=== PATIENT | female | born 1950 | race Caucasian/White ===

== ENCOUNTER 2017-01-10 09:09 | Inpatient (IN) ==
--- OUTSIDE RECORDS SUMMARY | 2017-01-10 09:19 | External Medical Summary | Continuity of Care Document ---
:1950 Author Organization [facility] Allergies Medications Problems Procedures Results Encounters ACCT No. Visit Discharge Status Pt. Type Provider Facility Loc./Unit Complaint Date/Time [id number] 08/06/2013 08/06/2013 CLS Outpatient 09:12:00 23:59:59 [id number] 07/09/2013 07/09/2013 CLS Outpatient 10:43:00 23:59:59
[2017-01-10 10:05] VITALS: BMI 32.8
--- NOTE | 2017-01-10 10:27 | History & Physical Report ---
<Tahmina Cannon Jose - Last Filed: 01/10/17 11:52> History of Present Illness Date: 01/10/17 Chief complaint: right eye redness, swelling HPI: Yuli Kruse is a 66 y/o woman who woke up in the morning of 01/09/17 with right eye swelling, redness and pain. She denies fevers/chills, nausea, body aches, weakness or dizziness, diplopia, cough/cold, SOA, chest pain, abdominal pain or GI complaints, dysuria, or leg swelling. She denies any trauma or possible insect bites to this area. She was seen at [facility] that day , and was urgently referred to Dr. Sneed. He began treatment for right periorbital cellulitis with Rocephin IM and Bactrim DS 2 tablets BID. She returned for office f/u with Dr. Sneed on 01/10/17 after taking her morning dose of Bactrim but the redness and swelling was much worse. Dr. Sneed then contacted Dr. Garber and the patient was admitted to the hospital for further evaluation of her worsening right periorbital cellulitis. Review of Systems ROS unobtainable: due to mental status (Hx of MR; answers simple questions; ROS obtained primarily from patient's sister, Cari) - Constitutional Constitutional: Absent: chills, fatigue, fever(s), weight loss - EENMT Eyes: Present: as per HPI Nose: Absent: obstruction Mouth/Throat: Absent: sore throat, changes in swallowing - Cardiovascular Cardiovascular: Absent: chest pain, edema Vascular: Absent: pedal edema - Respiratory Respiratory: Absent: cough, dyspnea - Gastrointestinal Gastrointestinal: Absent: abdominal pain, diarrhea, nausea, vomiting - Genitourinary Menstruation: post hysterectomy - Musculoskeletal Musculoskeletal: Absent: muscle weakness - Integumentary/Breasts Integumentary: Present: as per HPI - Neurological Neurological: Absent: dizziness, frequent falls, headache(s), weakness - Psychiatric Psychiatric: Present: anxiety - Allergic/Immunologic Allergic/Immunologic: Absent: throat swelling PFSH HTN HLD Hypothyroidism DM2. Hgb A1c 6.9% (10/26/16). MR Asthma GERD Obesity BMI >30 Surgical History: Right eye surgery 2016. Hernia repair. Hysterectomy. possibly goiter - well healed faint incision to right side of neck. Colonoscopy 2010. Choecystectomy Family History: Diabetes, heart disease, bone cancer, seizures - Social History Smoking status: Never smoker Substance use type: does not use Alcohol intake frequency: does not drink Current residence: Apartment/Private Home Social history: PCP - Dr. Meza Her sister, Cari, is Danielle's guardian. Medications Home Medications Medication Instructions Recorded Confirmed Type Acetaminophen [Tylenol Extra 1,000 mg PO Q8H PRN #0 02/25/10 History Strength] Albuterol Sulfate (Albuterol 1 puff IH PRN #0 02/25/10 History Sulfate Hfa) Ascorbic Acid (Vitamin C) 1,000 mg PO DAILY #0 02/25/10 History Atorvastatin Calcium [Lipitor] 20 mg PO PM #0 02/25/10 History Calcium Carbonate/Vitamin D3 1 tab PO DAILY #0 02/25/10 History (Calcium + D 600 Mg Tablet) Docusate Sodium [Stool Softener] 100 mg PO BID #0 02/25/10 History Levothyroxine Sodium (Levothroid) 150 mcg PO DAILY #0 02/25/10 History Lisinopril/Hydrochlorothiazide 1 tab PO DAILY #0 02/25/10 History (Lisinopril-Hctz 10-12.5 Tab) Metformin HCl [Glucophage] 500 mg PO BID #0 02/25/10 History Potassium Chloride (Micro-K) 10 meq PO DAILY #0 02/25/10 History Vitamin E (Natural Vitamin E) 1,000 unit PO DAILY #0 02/25/10 History Diphenhydramine Hcl (Benadryl) 50 mg PO PRN #0 12/25/10 History Allergies Allergy/AdvReac Type Severity Reaction Status Date / Time aspirin Allergy Severe HIVES Verified 01/10/17 10:21 Penicillins Allergy Severe HIVES Verified 01/10/17 10:21 BEE STING Allergy Unknown Uncoded 01/10/17 10:21 Exam Vital Signs: Temperature 96.9 F 01/10/17 09:34 Pulse Rate 98 01/10/17 09:34 Respiratory Rate 18 01/10/17 09:34 Blood Pressure 163/88 H 01/10/17 09:34 Pulse Oximetry 95 01/10/17 09:34 Oxygen Delivery Method Room Air Height/Weight/BMI: Height 1.54 m Weight 77.5 kg Body Mass Index 32.8 - Constitutional Present: no acute distress, well nourished, well developed, obese - Routine HEENT Exam Eye: Present: scleral injection (purulent drainage from right eye), periorbital swelling, periorbital tenderness. Absent: EOMI (pt was unable to keep her right eye open well to fully assess EOMs. ) ENT: Present: mucous membranes moist - Detailed Head Exam Head image: 1 - swelling and erythema 2 - erythema extends to left maxilla 3 - erythema - Routine Neck Exam Present: lymphadenopathy (with lymphadenitis) - Routine Respiratory Exam Present: CTA bilaterally - Routine Cardiovascular Exam Present: RRR, S1, S2, murmur - Routine Abdominal Exam Present: soft, normoactive bowel sounds, non distended, non tender - Routine Extremities Exam Present: no edema, pulses intact, normal capillary refill - Routine Skin Exam Present: intact, dry, warm - Routine Neurological Exam Present: alert, oriented X3, normal speech - Routine Psychiatric Exam Present: normal affect, normal thought process, cooperative Results - Labs CBC & Chem 7: 01/10/17 10:16 01/10/17 10:16 Assessment and Plan (1) Preseptal cellulitis of right eye Current visit: Yes Status: Acute DVT Prophylaxis: SCD's Resuscitation Status: Full Code Assessment and Plan: ASSESSMENT Right periorbital cellulitis with possible severe sepsis (lactate 2.6 without other criteria) HTN HLD Hypothyroidism DM2. Hgb A1c 6.9% (10/26/16). MR Asthma GERD Obesity BMI >30 PLAN Admit, inpatient status for worsening right periorbital cellulitis with failed outpatient treatment Obtain CT orbit with contrast IVF 1L bolus d/t lactate 2.6 - repeat lactate in a few hrs to assess clearance. If it would happen to rise to 4 or greater or if she becomes hypotensive, she will need an additional 1325 mL bolus. Abx: Vanco + Rocephin + gentamycin eye ointment. Consult Dr. Sneed. Pain control: Tylenol; [place] PRN. Resume home meds once reconciled by nursing staff. Discussed with family; outside records accessed and reviewed for collateral information. Sepsis Assessment - Evaluation Sepsis screening result: No Definite Risk Hospital Course Summary Disclaimer: The visit summary below is not to be considered part of the above Progress Note. Hospital Course: Date of admission: 01/10/17 ASSESSMENT Right periorbital cellulitis with possible severe sepsis (lactate 2.6 without other criteria) HTN HLD Hypothyroidism DM2. Hgb A1c 6.9% (10/26/16). MR Asthma GERD Obesity BMI >30 PLAN Admit, inpatient status for worsening right periorbital cellulitis with failed outpatient treatment Obtain CT orbit with contrast IVF 1L bolus d/t lactate 2.6 - repeat lactate in a few hrs to assess clearance. If it would happen to rise to 4 or greater or if she becomes hypotensive, she will need an additional 1325 mL bolus. Abx: Vanco + Rocephin + gentamycin eye ointment. Consult Dr. Sneed. Pain control: Tylenol; [place] PRN. Resume home meds once reconciled by nursing staff. <Alexander Garber - Last Filed: 01/10/17 14:42> History of Present Illness Date: 01/10/17 [facility] Patient Stated Medical History Cataracts Yes: right removed Hypertension Yes Other Cardiology Yes: murmur Pneumonia Yes Diabetes Mellitus Type 2 Yes: borderline Exam Vital Signs: Temperature 96.9 F 01/10/17 09:34 Pulse Rate 98 01/10/17 09:34 Respiratory Rate 18 01/10/17 09:34 Blood Pressure 163/88 H 01/10/17 09:34 Pulse Oximetry 95 01/10/17 09:34 Height/Weight/BMI: Height 1.54 m Weight 77.5 kg Body Mass Index 32.8 Results - Labs CBC & Chem 7: 01/10/17 10:16 01/10/17 10:16 Microbiology Results: Microbiology 01/10/17 10:15 Peripheral/Iv Start Blood Culture - Preliminary Culture Initiated - Results Pending 01/10/17 10:16 Peripheral/Iv Start Blood Culture - Preliminary Culture Initiated - Results Pending Assessment and Plan (1) Preseptal cellulitis of right eye Current visit: Yes Status: Acute Assessment and Plan: ASSESSMENT Right periorbital cellulitis with possible severe sepsis (lactate 2.6 without other criteria) Extensive left-sided paranasal sinus disease - possible chronic sinusitis HTN HLD Hypothyroidism DM2. Hgb A1c 6.9% (10/26/16). MR Asthma GERD Obesity BMI >32.8 Have independently interviewed and examined pt. Chart reviewed. 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 Care plan developed with my supervision; agree with above. Developed redness, swelling, and discomfort around her right eye yesterday morning. See in clinic and referred to Dr Sneed. Give Rocephin 1 gram IM yesterday and started on Bactrim DS 2 tables BID. Reassessed by Dr Sneed this morning and erythema and edema worsening despite treatments. Patient notes discomfort to this area. Not able to open eye. No f/c. Not having nausea or vomiting. Breathing stable. With worsening cellulitis despite appropriate outpatient treatment inpatient admission warranted. Anticipate greater than 2 midnights of care needed. HEENT: swelling/redness to right eye. Not able to open eye Lungs: clear bilaterally, no distress on RA CV: regular with EPI AB: soft nt/nd MSE: awake alert Plan: Inpatient admission for treatment of periorbital cellulitis. Initiate Vancomycin and Rocephin for skin coverage. Dr Sneed recommend gentamicin eye drops as well. IVF for support. Recheck lactate (possible increase secondary to patient's metformin use and acute illness). Hold Metformin due to acute illness and elevated lactate. Monitor sugars. Pain control. SCD for DVT prevention. Care to return to Dr Meza at time of [place] [facility] - Time spent with patient greater than 35 minutes Hospital Course Summary Disclaimer: The visit summary below is not to be considered part of the above Progress Note.
[2017-01-10] MEDS ORDERED: VANCOMYCIN - PHARMACY CONSULT MC ONE (10:44)
[2017-01-10] MEDS ORDERED: NS 1,000 ML IV ONE (10:46)
[2017-01-10] MEDS ORDERED: HYDROCODONE/APAP 5mg/325mg TABLET PO PRN (10:53)
[2017-01-10] MEDS ORDERED: ONDANSETRON 4 MG/2 ML INJECTION IV PRN (10:53)
[2017-01-10] MEDS ORDERED: ACETAMINOPHEN 500 MG TABLET PO PRN (10:54)
[2017-01-10] MEDS ORDERED: IOHEXOL 300mg/ml 50ml INJECTION ONE (10:58)
[2017-01-10] MEDS ORDERED: SALINE FLUSH 10ml SYRINGE ONE (10:58)
[2017-01-10] MEDS ORDERED: NS 100 ML ONE (10:58)
[2017-01-10] MEDS: GENTAMICIN 0.3% RIGHT EYE SCH ×3 (11:03→20:18)
[2017-01-10] MEDS: EYE RIGHT EYE SCH ×3 (11:03→20:18)
--- NOTE | 2017-01-10 11:36 | CT Scan Report ---
Indication: right periorbital cellulitis PROCEDURE: CT orbit BI w con: Encounter: Initial Comparison: None Technique: Axial postcontrast CT imaging through the orbits was performed with coronal and sagittal two-dimensional reformats. Automated Exposure Control and Iterative Reconstruction dose reducing techniques were utilized. Contrast: Omnipaque 300 49mL Findings: Complete opacification of the left maxillary sinus with extension into the left anterior ethmoid air cells and left frontal sinus which is hypoplastic. Moderate mucosal thickening in the right frontal sinus and frontoethmoidal recess region. Mucosal thickening in the right middle ethmoid air cells as well. Trace mucosal thickening in the right maxillary sinus. The sphenoid sinuses are clear. Evidence of prior unusual appearing scleral banding procedure on the right side. Recommend correlation with the patient's ophthalmologic history. No acute orbital fracture appreciated. High attenuation secretions and enhancement in the left maxillary sinus could represent a fungal sinusitis. No CT evidence to suggest a subperiosteal abscess however. The globes are intact. Prior cataract surgery on the right side. Left lens appears normally located. No post septal inflammatory change or hematoma. The extraocular muscles and optic nerves appear grossly normal. There is severe soft tissue swelling and inflammation in the soft tissues lateral and inferior to the right orbit. No focal or drainable fluid collection appreciated. Impression: 1. Evidence of an extensive preseptal right-sided periorbital cellulitis. No findings to suggest a true orbital cellulitis. 2. Extensive left-sided paranasal sinus disease could represent chronic sinusitis, possibly fungal sinusitis. .
--- NOTE | 2017-01-10 11:53 | Pharmacy Consult-Antibiotics ---
Pharmacy Consult-Vancomycin - Laboratory Information WBC 7.0 T/MM3 (4.5-11.0) 01/10/17 10:16 BUN 16.0 MG/DL (7-17) 01/10/17 10:16 Creatinine 0.6 MG/DL (0.7-1.2) L 01/10/17 10:16 Procalcitonin < 0.05 NG/ML 01/10/17 10:16 SK is 66yo F admitted with Rt joshua-orbital cellulitis. Starting on Vanco + Ceftriaxone + Gentamicin Ophthalmic Ointment. Renal fx appears stable. Will give VANCOMYCIN 2gm IV at 1300, then [id number] thereafter starting at 2100 tonight. Will confirm trough levels tomorrow am. Target trough = 15-20mcg/ml. Thank you.
[2017-01-10] MEDS: CEFTRIAXONE 1 G in NS 100 ML IV SCH (12:20)
[2017-01-10] MEDS ORDERED: NS FLUSH BAG 500ml IV PRN (13:53)
[2017-01-10] MEDS: NS 1,000 ML IV SCH ×2 (16:01→21:37)
--- NOTE | 2017-01-11 09:23 | Pharmacy Consult-Antibiotics ---
Pharmacy Consult-Vancomycin - Laboratory Information WBC 7.9 T/MM3 (4.5-11.0) 01/11/17 04:14 BUN 12.0 MG/DL (7-17) 01/11/17 04:14 Creatinine 0.7 MG/DL (0.7-1.2) 01/11/17 04:14 Procalcitonin < 0.05 NG/ML 01/11/17 04:14 Vancomycin Trough 21.78 UG/ML (15-20) H* 01/11/17 08:16 HOLDING THIS AM DOSE. Will readjust regimen to VANCOMYCIN 1500mg IV q12hrs, starting at 1200 today. This gives calculated peak/trough of 48/18 respectively. Will confirm levels and adjust regimen to keep trough level within 15-20 mcg/ml range. Thank you
--- NOTE | 2017-01-11 10:54 | Progress Note ---
Subjective: F/U: Right periorbital cellulitis Doing better today. Right eye much less discomfortable and swollen. Can open eye. Reports vision in right eye normal. No f/c. Breathing well-not feeling SOA or congested. No chest pain. Eating well-not upset at stomach or nauseated. No ab pain. Has stool this morning. Urinating well. Legs did feel very hot and crampy this morning due to SCD-removed and Tylenol given. Objective Vital signs: Temperature 96.0 F L 01/11/17 07:27 Pulse Rate 99 01/11/17 07:27 Respiratory Rate 18 01/11/17 07:27 Blood Pressure 145/83 H 01/11/17 07:27 Pulse Oximetry 98 01/11/17 07:27 Height/Weight/BMI: Height 1.54 m Weight 79.3 kg Body Mass Index 32.8 - Constitutional Present: well nourished, well developed, obese, cooperative. Absent: agitated - Routine HEENT Exam Head: Present: normocephalic, atraumatic, facial swelling (Significant decrease in erythema and edema surrounging right eye) Eye: Present: EOMI, PERRL ENT: Present: mucous membranes moist - Routine Respiratory Exam Present: CTA bilaterally. Absent: respiratory distress, rhonchi, wheezes, crackles - Routine Cardiovascular Exam Present: RRR, murmur - Routine Abdominal Exam Present: soft, normoactive bowel sounds. Absent: non distended, non tender - Routine Extremities Exam Present: no edema, pulses intact. Absent: cyanosis, clubbing - Routine Musculoskeletal Exam Musculoskeletal: Present: no clubbing or cyanosis, normal strength - Routine Skin Exam Present: intact, erythema (Erythema arround right eye decreasing. ), warm, normal turgor. Absent: mottling - Routine Neurological Exam Present: alert, oriented X3, CN II-XII intact, vision grossly intact, hearing grossly intact. Absent: motor deficit - Routine Psychiatric Exam Present: normal affect, normal thought process, cooperative. Absent: anxious, agitated Results - Labs CBC & Chem 7: 01/11/17 04:14 01/11/17 04:14 Microbiology Results: Microbiology 01/10/17 10:15 Peripheral/Iv Start Blood Culture - Preliminary No Growth After 1 Day 01/10/17 10:16 Peripheral/Iv Start Blood Culture - Preliminary No Growth After 1 Day Assessment and Plan (1) Preseptal cellulitis of right eye Current visit: Yes Status: Acute DVT Prophylaxis: SCD's Assessment and Plan: ASSESSMENT Right periorbital cellulitis with possible severe sepsis (lactate 2.6 without other criteria) Severe sepsis excluded Suspect elevated lactic acid secondary to metformin. Extensive left-sided paranasal sinus disease - possible chronic sinusitis HTN HLD Hypothyroidism DM2. Hgb A1c 6.9% (10/26/16). MR Asthma GERD Obesity BMI - 32.8 Plan Continue IV Rocephin and Vancomycin along with topical gentamicin for periorbital cellulitis. Clinically improving - Erythema and edema with significant decrease. WBC normal. Blood pressure not decrease. Hold metformin due to elevated lactate at presentation - sugars stable overall. Blood pressures showing elevation to 140s-150s - likely could restart home antihypertensives tomorrow. Encourage ambulation and activities. Recheck CBC, BMP, and CRP in am. Patient improving clinically and biochemically but still prudent to continue inpatient treatment and antibiotics. Case discussed with nursing. Time spent with patient care 25 minutes. - Time spent with patient 25 - 35 minutes Sepsis Assessment - Evaluation Sepsis screening result: No Definite Risk Hospital Course Summary Disclaimer: The visit summary below is not to be considered part of the above Progress Note. Hospital Course: Date of admission: 01/10/17 ASSESSMENT Right periorbital cellulitis with possible severe sepsis (lactate 2.6 without other criteria) HTN HLD Hypothyroidism DM2 - Hgb A1c 6.9% (10/26/16) MR Asthma GERD Obesity BMI - 32.8 PLAN Admit, inpatient status for worsening right periorbital cellulitis with failed outpatient treatment. Obtain CT orbit with contrast. IVF 1L bolus d/t lactate 2.6 - repeat lactate in a few hours to assess clearance. If it would happen to rise to 4 or greater or if she becomes hypotensive, she will need an additional 1325 mL bolus. Hold metformin due to elevated lactate. Monitor sugars. Antibiotics: Vancomycin + Rocephin + gentamicin eye ointment. Consult Dr. Sneed. Pain control: Tylenol; [place] PRN. Resume home medications once reconciled by nursing staff. Care to return to Dr Meza at time of discharge. 01/11/17 Clinically improving. Can open right eye. Minimal right facial discomfort. Continue IV Rocephin and Vancomycin along with topical gentamicin for periorbital cellulitis. Clinically improving - Erythema and edema with significant decrease. WBC normal. Blood pressure not decrease. Hold metformin due to elevated lactate at presentation - sugars stable overall. Blood pressures showing elevation to 140s-150s - likely could restart home antihypertensives tomorrow. Encourage ambulation and activities. Recheck CBC, BMP, and CRP in am secondary to acute infection and mediation use. Patient improving clinically and biochemically but still prudent to continue inpatient treatment and antibiotics.
[2017-01-11] MEDS: CEFTRIAXONE 1 G in NS 100 ML IV SCH (11:11)
[2017-01-11] MEDS: GENTAMICIN 0.3% RIGHT EYE SCH ×3 (11:12→20:51)
[2017-01-11] MEDS: EYE RIGHT EYE SCH ×3 (11:12→20:51)
[2017-01-11] MEDS ORDERED: INSULIN REGULAR, HUMAN 100 UNIT/ML INJECTION SQ ONE (11:51)
[2017-01-11] MEDS: SALINE FLUSH 10ml SYRINGE IV PRN ×2 (11:57→23:50)
[2017-01-11] MEDS: INSULIN ASPART 100unit/ml INJECTION SQ PRN (21:58)
[2017-01-12] MEDS: INSULIN ASPART 100unit/ml INJECTION SQ PRN ×3 (06:12→16:57)
[2017-01-12] MEDS: GENTAMICIN 0.3% RIGHT EYE SCH ×2 (08:22→15:29)
[2017-01-12] MEDS: EYE RIGHT EYE SCH ×2 (08:22→15:29)
[2017-01-12] MEDS: CEFTRIAXONE 1 G in NS 100 ML IV SCH (09:55)
--- NOTE | 2017-01-12 10:39 | Progress Note ---
<DavisTahmina D - Last Filed: 01/12/17 10:30> Subjective: Yuli was sitting in her chair this morning - she showed me pictures that she colored for nurses and for Dr. Garber. She feels much better - her eye swelling has improved and it doesn't hurt as much. She denies any fever/chills. No chest pain or dyspnea. She denies sinus congestion or drainage. No abdominal pain or nausea - she's been eating well. She asks about when she can go home. Objective Vital signs: Temperature 97.4 F 01/12/17 07:26 Pulse Rate 92 01/12/17 07:26 Respiratory Rate 18 01/12/17 07:26 Blood Pressure 149/81 H 01/12/17 07:26 Pulse Oximetry 95 01/12/17 07:26 Height/Weight/BMI: Height 1.54 m Weight 79.5 kg Body Mass Index 32.8 - Constitutional Present: no acute distress, well nourished, well developed - Routine HEENT Exam Eye: Present: periorbital swelling (improving; erythema also fading), periorbital tenderness. Absent: conjunctival icterus ENT: Present: mucous membranes moist Comments: able to keep right eye open - Routine Respiratory Exam Present: CTA bilaterally - Routine Cardiovascular Exam Present: RRR, S1, S2, murmur - Routine Abdominal Exam Present: soft, normoactive bowel sounds, non distended, non tender - Routine Extremities Exam Present: no edema, pulses intact - Routine Musculoskeletal Exam Musculoskeletal: Present: moving extremities well - Routine Skin Exam Present: intact, dry, warm - Routine Neurological Exam Present: alert, oriented X3, CN II-XII intact - Routine Psychiatric Exam Present: normal affect, normal thought process, cooperative Results - Labs CBC & Chem 7: 01/12/17 04:04 01/12/17 04:04 Microbiology Results: Microbiology 01/10/17 10:15 Peripheral/Iv Start Blood Culture - Preliminary No Growth After 2 Days 01/10/17 10:16 Peripheral/Iv Start Blood Culture - Preliminary No Growth After 2 Days Assessment and Plan (1) Preseptal cellulitis of right eye Current visit: Yes Status: Acute Assessment and Plan: ASSESSMENT Right periorbital cellulitis with possible severe sepsis (lactate 2.6 without other criteria) Severe sepsis excluded Suspect elevated lactic acid secondary to metformin. Extensive left-sided paranasal sinus disease - possible chronic sinusitis HTN HLD Hypothyroidism DM2. Hgb A1c 6.9% (10/26/16). MR Asthma GERD Obesity BMI - 32.8 Plan Continue IV Rocephin and Vancomycin along with topical gentamicin for periorbital cellulitis - day #3 of treatment. WBC remains normal; no fever. Cellulitis much improved, but not resolved. Will discuss metformin use with Dr. Garber - lactate was elevated on admission (more than what we would have expected given the rest of her labs). Home meds still not reconciled - will check with RN. Sepsis Assessment - Evaluation Sepsis screening result: No Definite Risk Hospital Course Summary Disclaimer: The visit summary below is not to be considered part of the above Progress Note. Hospital Course: Date of admission: 01/10/17 ASSESSMENT Right periorbital cellulitis with possible severe sepsis (lactate 2.6 without other criteria) HTN HLD Hypothyroidism DM2 - Hgb A1c 6.9% (10/26/16) MR Asthma GERD Obesity BMI - 32.8 PLAN Admit, inpatient status for worsening right periorbital cellulitis with failed outpatient treatment. Obtain CT orbit with contrast. IVF 1L bolus d/t lactate 2.6 - repeat lactate in a few hours to assess clearance. If it would happen to rise to 4 or greater or if she becomes hypotensive, she will need an additional 1325 mL bolus. Hold metformin due to elevated lactate. Monitor sugars. Antibiotics: Vancomycin + Rocephin + gentamicin eye ointment. Consult Dr. Sneed. Pain control: Tylenol; [place] PRN. Resume home medications once reconciled by nursing staff. Care to return to Dr Meza at time of discharge. 01/11/17 Clinically improving. Can open right eye. Minimal right facial discomfort. Continue IV Rocephin and Vancomycin along with topical gentamicin for periorbital cellulitis. Clinically improving - Erythema and edema with significant decrease. WBC normal. Blood pressure not decrease. Hold metformin due to elevated lactate at presentation - sugars stable overall. Blood pressures showing elevation to 140s-150s - likely could restart home antihypertensives tomorrow. Encourage ambulation and activities. Recheck CBC, BMP, and CRP in am secondary to acute infection and mediation use. Patient improving clinically and biochemically but still prudent to continue inpatient treatment and antibiotics. <Alexander Garber - Last Filed: 01/12/17 17:22> Objective Vital signs: Temperature 97.7 F 01/12/17 15:22 Pulse Rate 88 01/12/17 15:22 Respiratory Rate 20 01/12/17 15:22 Blood Pressure 155/71 H 01/12/17 15:22 Pulse Oximetry 96 01/12/17 15:22 Height/Weight/BMI: Height 1.54 m Weight 79.5 kg Body Mass Index 32.8 Results - Labs CBC & Chem 7: 01/12/17 04:04 01/12/17 04:04 Microbiology Results: Microbiology 01/10/17 10:15 Peripheral/Iv Start Blood Culture - Preliminary No Growth After 2 Days 01/10/17 10:16 Peripheral/Iv Start Blood Culture - Preliminary No Growth After 2 Days Assessment and Plan (1) Preseptal cellulitis of right eye Current visit: Yes Status: Acute Assessment and Plan: ASSESSMENT Right periorbital cellulitis with possible severe sepsis (lactate 2.6 without other criteria) Severe sepsis excluded Suspect elevated lactic acid secondary to metformin. Extensive left-sided paranasal sinus disease - possible chronic sinusitis HTN HLD Hypothyroidism DM2. Hgb A1c 6.9% (10/26/16). MR Asthma GERD Obesity BMI - 32.8 Have independently interviewed and examined pt. Chart reviewed. Case discussed with Dr Sneed and my [employer]. Care plan developed with my supervision; agree with above. Doing well today. No pain or discomfort to right eye. No fevers or chills. Eating well. Breathing well. NO ab pain. Feeling much better in general. Lungs: clear CV: regular AB: soft nt/nd +BS MSE: awake alert appropriate MRSA swab positive Plan: Discussed case with Dr Sneed-pt clinically much improve. MRSA swab positive - will continue treatments with oral clindamycin on topical gentamicin. Watch for nausea with oral clindamycin. Feel she is stable for discharge to home. Will have her follow with Dr Sneed in 1 week for evaluation. See orders for details. Time spent with patient care and discharge greater than 30 minutes. Hospital Course Summary Disclaimer: The visit summary below is not to be considered part of the above Progress Note.
[2017-01-12] MEDS: SALINE FLUSH 10ml SYRINGE IV PRN (11:03)
[2017-01-12 15:24] VITALS: BP 155/71; PULSE 88; RESP 20; TEMP 97.7; O2SAT 96
--- NOTE | 2017-01-12 17:29 | Discharge Summary ---
Discharge Information Date of admission: 01/10/17 09:09 Anticipated date of discharge: 01/12/17 Attending Physician: Alexander Garber MD Primary care physician: Nilo Meza MD Consults: Physician Consult: Fred Sneed Reason For Exam: periorbital cellulitis - Discharge Diagnosis Discharge Diagnosis: Right periorbital cellulitis with possible severe sepsis (lactate 2.6 without other criteria) Suspect secondary to MSRA Severe sepsis excluded Suspect elevated lactic acid secondary to metformin. Associated conditions and complications Extensive left-sided paranasal sinus disease - possible chronic sinusitis HTN HLD Hypothyroidism DM2. Hgb A1c 6.9% (10/26/16). MR Asthma GERD Obesity BMI - 32.8 - Laboratory Labs: Admit Lab 01/10/17 01/10/17 10:16 10:16 WBC 7.0 RBC 4.30 Hgb 13.2 Hct 40.6 MCV 94.4 Plt Count 236 Neut % (Auto) 63.4 Sodium 142 Potassium 4.5 Chloride 104 Carbon Dioxide 26 Anion Gap 12 BUN 16.0 Creatinine 0.6 L GFR Calculation 101 Glucose 110 Calculated Osmolality 275 Magnesium 2.0 Total Bilirubin 0.50 AST 17 ALT 30 Plasma Lactate 2.6 H 01/12/17 04:04 01/12/17 04:04 - Microbiology Microbiology 01/10/17 10:15 Peripheral/Iv Start Blood Culture - Preliminary No Growth After 2 Days 01/10/17 10:16 Peripheral/Iv Start Blood Culture - Preliminary No Growth After 2 Days History of Present Illness HPI: Yuli Kruse is a 66 y/o woman who woke up in the morning of 01/09/17 with right eye swelling, redness and pain. She denies fevers/chills, nausea, body aches, weakness or dizziness, diplopia, cough/cold, SOA, chest pain, abdominal pain or GI complaints, dysuria, or leg swelling. She denies any trauma or possible insect bites to this area. She was seen at [facility] that day , and was urgently referred to Dr. Sneed. He began treatment for right periorbital cellulitis with Rocephin IM and Bactrim DS 2 tablets BID. She returned for office f/u with Dr. Sneed on 01/10/17 after taking her morning dose of Bactrim but the redness and swelling was much worse. Dr. Sneed then contacted Dr. Garber and the patient was admitted to the hospital for further evaluation of her worsening right periorbital cellulitis. For complete details of the H&P refer to that document. Objective Vital signs: Temperature 97.7 F 01/12/17 15:22 Pulse Rate 88 01/12/17 15:22 Respiratory Rate 20 01/12/17 15:22 Blood Pressure 155/71 H 01/12/17 15:22 Pulse Oximetry 96 01/12/17 15:22 Height/Weight/BMI: Height 1.54 m Weight 79.5 kg Body Mass Index 32.8 Hospital Course This is a general summary of the patient's hospital course. For more details refer to the complete medical record. Hospital course: Date of admission: 01/10/17 ASSESSMENT Right periorbital cellulitis with possible severe sepsis (lactate 2.6 without other criteria) HTN HLD Hypothyroidism DM2 - Hgb A1c 6.9% (10/26/16) MR Asthma GERD Obesity BMI - 32.8 PLAN Admit, inpatient status for worsening right periorbital cellulitis with failed outpatient treatment. Obtain CT orbit with contrast. IVF 1L bolus d/t lactate 2.6 - repeat lactate in a few hours to assess clearance. If it would happen to rise to 4 or greater or if she becomes hypotensive, she will need an additional 1325 mL bolus. Hold metformin due to elevated lactate. Monitor sugars. Antibiotics: Vancomycin + Rocephin + gentamicin eye ointment. Consult Dr. Sneed. Pain control: Tylenol; [place] PRN. Resume home medications once reconciled by nursing staff. Care to return to Dr Meza at time of discharge. 01/11/17 Clinically improving. Can open right eye. Minimal right facial discomfort. Continue IV Rocephin and Vancomycin along with topical gentamicin for periorbital cellulitis. Clinically improving - Erythema and edema with significant decrease. WBC normal. Blood pressure not decrease. Hold metformin due to elevated lactate at presentation - sugars stable overall. Blood pressures showing elevation to 140s-150s - likely could restart home antihypertensives tomorrow. Encourage ambulation and activities. Recheck CBC, BMP, and CRP in am secondary to acute infection and mediation use. Patient improving clinically and biochemically but still prudent to continue inpatient treatment and antibiotics. 01/12/17 Clinically doing well. Swelling and erythema resolving. No pain or discomfort. Not temp elevation. Vitals and blood sugars stable. Discussed case with Dr Sneed-pt clinically much improved. MRSA swab positive - will continue treatments with oral clindamycin on topical gentamicin. Watch for nausea with oral clindamycin. Feel she is stable for discharge to home. Will have her follow with Dr Sneed in 1 week for evaluation. See orders for details. DVT Prophylaxis: SCD's Discharge Plan - Med Rec/Dispo Referrals/Follow Up: Fred Sneed MD [Physician] - 1 Week (F/U of periorbital cellulitis ) Nilo Meza MD [Family Provider] - 1 Week (Hospital follow up - periorbital celluitis. Medical rechek for her DM and HTN. ) [facility] Instructions: Cellulitis (DC) Prescriptions: New Clindamycin [Cleocin] 300 mg PO TID #30 cap Gentamicin Eye Oint [Garamycin O/O] 1 applic RIGHT EYE TID #0 tube Continue Glimepiride 1 mg PO DAILY Atorvastatin [Lipitor] 10 mg PO DAILY Naproxen [Naprosyn] 375 mg PO BID PRN PRN Reason: Pain Lisinopril/Hctz 10/12.5 1 tab PO DAILY Levothyroxine Tab [Synthroid] 125 mcg PO DAILY Ascorbic Acid [Vitamin C] 1 tab PO DAILY Potassium Chloride [Micro-K] 10 meq PO DAILY Omeprazole [Prilosec] 1 cap PO ACB Albuterol Neb (0.083%) [Proventil Neb (0.083%)] 2.5 mg AEROSOL Q6H PRN PRN Reason: Wheezing Vitamin E Changed Metformin HCl [Glucophage] 1,000 mg PO BIDWM #0 Discharge Instructions/Outpatient Orders: Final Provider Discharge Instructions Location: Determined By Patient - Disposition 01 Discharged Home, Self-Care
== END 2017-01-12 19:25 | disposition home or self-care (01) | DRG 603 ==
LOC: MED 09:09
PROVIDERS: ADMIT Hospitalist; ATTEND Hospitalist